=== PATIENT | female | born 1950 | race Caucasian/White ===

== ENCOUNTER 2017-10-31 13:02 | Emergency (ER) | payer MEDICARE, OTHER ==
[~2017-10-31] VITALS: Ht 160 cm; Wt 94.3 kg
[~2017-10-31 13:02] MED LIST: ASPI81CH PO; CLARITIN10 MG PO; CVS OMEGA-3 KR1 EACH PO; HYDCHL25; Hydrocodone Bt1 EACH PO; LATA.005SO BOTHEYES; LEVSOD50 PO; Mobic15 MG PO; POTASSIUM GLUCO90 MG PO; Pravachol40 MG PO; RANI150 PO; VERA120 PO
[2017-10-31 14:06] LABS: BASOPHILS ABSOLUTE AUTO 0.06 K/mm3 (0.00-0.23); BASOPHILS PERCENT AUTO 0 % (0-2); EOSINOPHILS ABSOLUTE AUTO 0.06 K/mm3 (0.00-0.68); EOSINOPHILS PERCENT AUTO 0 % (0-6); Hematocrit 31.1 % (33.0-51.0); Hemoglobin 10.2 g/dL (11.5-16.0); IMMATURE GRAN PERCENT AUTO 1 % (0-1); LYMPHOCYTES ABSOLUTE AUTO 2.56 K/mm3 (0.84-5.20); LYMPHOCYTES PERCENT AUTO 19 % (21-46); MONOCYTES ABSOLUTE AUTO 0.97 K/mm3 (0.16-1.47); MONOCYTES PERCENT AUTO 7 % (4-13); Mean Corpuscular HGB 28.2 pg (26.0-34.0); Mean Corpuscular HGB Conc 32.8 g/dL (31.5-36.5); Mean Corpuscular Volume 86 fL (80-100); Mean Platelet Volume 10.7 fL (9.1-12.4); NEUTROPHILS ABSOLUTE AUTO 9.76 K/mm3 (1.96-9.15); NEUTROPHILS PERCENT AUTO 72 % (41-73); Platelet Count 462 K/mm3 (150-400); RDW Coefficient Variation 14.6 % (11.7-14.2); RDW Standard Deviation 45.8 fL (35.1-46.3); Red Blood Cell Count 3.62 M/mm3 (3.80-5.20); White Blood Cell Count 13.51 K/mm3 (4.00-11.30)
[2017-10-31] MEDS ORDERED: Xalatan2.5 ML BOTHEYES (14:13)
[2017-10-31] MEDS ORDERED: VERA120ERB PO (14:23)
[2017-10-31] MEDS ORDERED: ALL DAY ALLERGY10 M1 PO (14:23)
[2017-10-31] MEDS ORDERED: PRAV20 PO (14:23)
[2017-10-31] MEDS ORDERED: ASPI81CH PO (14:23)
[2017-10-31] MEDS ORDERED: OMEPRAZOLE MAGN20 MG PO (14:23)
[2017-10-31] MEDS ORDERED: HYDCHL25 PO (14:24)
[2017-10-31] MEDS ORDERED: RANI150 PO (14:24)
[2017-10-31] MEDS ORDERED: MELO7.5 PO (14:24)
[2017-10-31] MEDS ORDERED: LEVSOD50 PO (14:24)
[2017-10-31] MEDS ORDERED: Norco 10-325 T1 EACH PO (14:25)
[2017-10-31 14:27] LABS: Alanine Aminotransfer (ALT/SGP 21 U/L (12-78); Albumin, Blood 3.4 g/dL (3.4-5.0); Alk Phos 109 U/L (50-136); Anion Gap 14 mmol/L (6-16); Aspartate Aminotrans (AST/SGOT 19 U/L (12-37); Bilirubin, Total 0.2 mg/dL (0.1-1.0); Blood Urea Nitrogen 30 mg/dL (8-24); CO2, Blood 22 mmol/L (21-32); Chloride, Blood 104 mmol/L (98-108); Creatinine, Blood 0.77 mg/dL (0.40-1.00); Globulin, Blood 3.3 g/dL (2.2-4.0); Glomerular Filtration Rate >60 (60-); Glucose, Blood 169 mg/dL (70-99); Potassium, Blood 3.1 mmol/L (3.5-5.5); Sodium, Blood 140 mmol/L (136-145); Total Protein, Blood 6.7 g/dL (6.4-8.2)
[2017-10-31 14:52] LABS: Troponin I 0.016 ng/mL (0.000-0.040)
[2017-10-31] MEDS ORDERED: Medi-Meclizine25 MG PO (15:57)
[2017-10-31] MEDS ORDERED: Zofran Odt8 MG SL (15:57)
[2017-12-06] MEDS ORDERED: VERA120ERB PO (17:01)
[2017-12-06] MEDS ORDERED: HYDCHL25 PO (17:01)
[2017-12-06] MEDS ORDERED: RANI150 PO (17:02)
[2017-12-06] MEDS ORDERED: MELO7.5 PO (17:02)
[2017-12-06] MEDS ORDERED: CALCA400CH PO (17:03)
[2017-12-06] MEDS ORDERED: LORA1SY PO (17:03)
[2017-12-06] MEDS ORDERED: POTASSIUM GLU2.5 MEQ PO (17:04)
[2017-12-06] MEDS ORDERED: OMEGA 3 KRILL OIL PO (17:05)
== END 2017-10-31 16:19 | disposition home or self-care (01) ==
LOC: ER 13:02
PROVIDERS: Emergency Medicine
DX: H81.09 Meniere's disease, unspecified ear (principal); I10 Essential (primary) hypertension; Z90.710 Acquired absence of both cervix and uterus
CPT/HCPCS: 36415; 70450; 80053; 84484; 85025; 93005; 93010; 96374; 96375; 99284; J2060; J2405

== ENCOUNTER 2017-11-03 08:53 | Inpatient (IN) | payer MEDICARE, OTHER ==
[~2017-11-03] VITALS: Ht 160 cm; Wt 96.7 kg
[~2017-11-03 08:53] MED LIST changes: +ALL DAY ALLERGY10 M1 PO; +HYDCHL25 PO; +MELO7.5 PO; +Medi-Meclizine25 MG PO; +Norco 10-325 T1 EACH PO; +OMEPRAZOLE MAGN20 MG PO; +PRAV20 PO; +VERA120ERB PO; +Xalatan2.5 ML BOTHEYES; +Zofran Odt8 MG SL
[2017-11-03 10:03] LABS: Alanine Aminotransfer (ALT/SGP 16 U/L (12-78); Albumin, Blood 2.7 g/dL (3.4-5.0); Albumin/Globulin Ratio 1.1 (0.8-1.8); Alk Phos 71 U/L (50-136); Anion Gap 13 mmol/L (6-16); Aspartate Aminotrans (AST/SGOT 9 U/L (12-37); Bilirubin, Total 0.2 mg/dL (0.1-1.0); Blood Urea Nitrogen 42 mg/dL (8-24); Bun/Creatinine Ratio 58.6 (12.0-20.0); CO2, Blood 22 mmol/L (21-32); Calcium, Blood 7.9 mg/dL (8.5-10.1); Chloride, Blood 104 mmol/L (98-108); Creatinine, Blood 0.72 mg/dL (0.40-1.00); Globulin, Blood 2.5 g/dL (2.2-4.0); Glomerular Filtration Rate >60 (60-); Glucose, Blood 163 mg/dL (70-99); Potassium, Blood 2.9 mmol/L (3.5-5.5); Sodium, Blood 139 mmol/L (136-145); Total Protein, Blood 5.2 g/dL (6.4-8.2)
[2017-11-03 10:20] LABS: BASOPHILS ABSOLUTE AUTO 0.01 K/mm3 (0.00-0.23); BASOPHILS PERCENT AUTO 0 % (0-2); EOSINOPHILS PERCENT AUTO 0 % (0-6); IMMATURE GRAN ABSOLUTE AUTO 0.14 K/mm3 (0.00-0.10); IMMATURE GRAN PERCENT AUTO 1 % (0-1); LYMPHOCYTES ABSOLUTE AUTO 1.62 K/mm3 (0.84-5.20); LYMPHOCYTES PERCENT AUTO 9 % (21-46); MONOCYTES ABSOLUTE AUTO 0.98 K/mm3 (0.16-1.47); MONOCYTES PERCENT AUTO 5 % (4-13); Mean Corpuscular HGB 28.4 pg (26.0-34.0); Mean Corpuscular HGB Conc 31.6 g/dL (31.5-36.5); Mean Platelet Volume 10.8 fL (9.1-12.4); NEUTROPHILS ABSOLUTE AUTO 15.76 K/mm3 (1.96-9.15); NEUTROPHILS PERCENT AUTO 85 % (41-73); NRBC ABSOLUTE 0.16 K/mm3 (0.00-0.02); NRBC Auto 0.9 /100 WBC (0.0-0.2); Platelet Count 330 K/mm3 (150-400); RDW Coefficient Variation 15.4 % (11.7-14.2); RDW Standard Deviation 48.1 fL (35.1-46.3); Red Blood Cell Count 1.69 M/mm3 (3.80-5.20); White Blood Cell Count 18.51 K/mm3 (4.00-11.30)
[2017-11-03 10:27] LABS: Hematocrit 15.2 % (33.0-51.0); Mean Corpuscular Volume 90 fL (80-100)
[2017-11-03 10:30] LABS: Hemoglobin 4.8 g/dL (11.5-16.0)
[2017-11-03 13:16] LABS: Source, Urine Clean Catch
[2017-11-03 13:21] LABS: Bilirubin, Urine Neg (Neg); Blood, Urine Neg (Neg); Glucose Qualitative, Urine Neg (Neg); Ketones, Urine 2+ (Neg); Leukocyte Esterase, Urine Neg (Neg); Nitrite, Urine Neg (Neg); Protein, Urine Neg (Neg); Specific Gravity, Urine 1.015 (1.003-1.022); Urobilinogen, Urine NORM (Normal)
[2017-11-03 13:33] LABS: Appearance, Urine Clear (Clear); Color, Urine Yellow (P-Yellow)
[2017-11-03 16:47] LABS: Hematocrit 19.1 % (33.0-51.0); Hemoglobin 6.2 g/dL (11.5-16.0)
[2017-11-03 22:44] LABS: Hematocrit 21.1 % (33.0-51.0); Hemoglobin 7.2 g/dL (11.5-16.0)
[2017-11-04 04:34] LABS: Hematocrit 24.1 % (33.0-51.0); Hemoglobin 8.2 g/dL (11.5-16.0); Mean Corpuscular HGB 29.4 pg (26.0-34.0); Mean Platelet Volume 10.5 fL (9.1-12.4); NRBC ABSOLUTE 0.19 K/mm3 (0.00-0.02); NRBC Auto 1.1 /100 WBC (0.0-0.2); Platelet Count 277 K/mm3 (150-400); RDW Coefficient Variation 14.4 % (11.7-14.2); RDW Standard Deviation 44.2 fL (35.1-46.3); Red Blood Cell Count 2.79 M/mm3 (3.80-5.20); White Blood Cell Count 17.57 K/mm3 (4.00-11.30)
[2017-11-04 04:39] LABS: Mean Corpuscular Volume 86 fL (80-100)
[2017-11-04 04:50] LABS: Anion Gap 10 mmol/L (6-16); Blood Urea Nitrogen 28 mg/dL (8-24); Bun/Creatinine Ratio 44.2 (12.0-20.0); CO2, Blood 25 mmol/L (21-32); Chloride, Blood 106 mmol/L (98-108); Creatinine, Blood 0.63 mg/dL (0.40-1.00); Glomerular Filtration Rate >60 (60-); Glucose, Blood 135 mg/dL (70-99); Potassium, Blood 3.3 mmol/L (3.5-5.5); Sodium, Blood 141 mmol/L (136-145)
[2017-11-05 05:04] LABS: Hematocrit 21.1 % (33.0-51.0); Hemoglobin 6.9 g/dL (11.5-16.0); Mean Corpuscular HGB 29.4 pg (26.0-34.0); Mean Corpuscular HGB Conc 32.7 g/dL (31.5-36.5); Mean Platelet Volume 10.5 fL (9.1-12.4); NRBC ABSOLUTE 0.08 K/mm3 (0.00-0.02); NRBC Auto 0.7 /100 WBC (0.0-0.2); Platelet Count 245 K/mm3 (150-400); RDW Coefficient Variation 15.4 % (11.7-14.2); RDW Standard Deviation 48.6 fL (35.1-46.3); Red Blood Cell Count 2.35 M/mm3 (3.80-5.20)
[2017-11-05 05:16] LABS: Mean Corpuscular Volume 90 fL (80-100)
[2017-11-05 05:18] LABS: Anion Gap 6 mmol/L (6-16); Blood Urea Nitrogen 24 mg/dL (8-24); Bun/Creatinine Ratio 37.8 (12.0-20.0); CO2, Blood 27 mmol/L (21-32); Calcium, Blood 7.4 mg/dL (8.5-10.1); Chloride, Blood 111 mmol/L (98-108); Creatinine, Blood 0.64 mg/dL (0.40-1.00); Glomerular Filtration Rate >60 (60-); Glucose, Blood 105 mg/dL (70-99); Potassium, Blood 3.7 mmol/L (3.5-5.5); Sodium, Blood 144 mmol/L (136-145)
[2017-11-06 06:19] LABS: Hematocrit 26.5 % (33.0-51.0); Hemoglobin 8.9 g/dL (11.5-16.0); Mean Corpuscular HGB 29.5 pg (26.0-34.0); Mean Corpuscular HGB Conc 33.6 g/dL (31.5-36.5); Mean Corpuscular Volume 88 fL (80-100); Mean Platelet Volume 10.3 fL (9.1-12.4); NRBC ABSOLUTE 0.05 K/mm3 (0.00-0.02); NRBC Auto 0.7 /100 WBC (0.0-0.2); Platelet Count 262 K/mm3 (150-400); RDW Standard Deviation 47.6 fL (35.1-46.3); Red Blood Cell Count 3.02 M/mm3 (3.80-5.20); White Blood Cell Count 7.39 K/mm3 (4.00-11.30)
[2017-11-06 06:35] LABS: Anion Gap 8 mmol/L (6-16); Blood Urea Nitrogen 10 mg/dL (8-24); CO2, Blood 26 mmol/L (21-32); Calcium, Blood 7.5 mg/dL (8.5-10.1); Chloride, Blood 111 mmol/L (98-108); Creatinine, Blood 0.56 mg/dL (0.40-1.00); Glomerular Filtration Rate >60 (60-); Glucose, Blood 88 mg/dL (70-99); Potassium, Blood 4.1 mmol/L (3.5-5.5); Sodium, Blood 145 mmol/L (136-145)
[2017-11-06] MEDS ORDERED: Senna Plus Tab1 EACH PO (11:17)
[2017-11-06] MEDS ORDERED: Ferrous Sulfat325 M2 PO (11:18)
[2017-11-06] MEDS ORDERED: THERA TABLET400 MCG PO (11:19)
[2017-12-06] MEDS ORDERED: VERA120ERB PO (17:01)
[2017-12-06] MEDS ORDERED: HYDCHL25 PO (17:01)
[2017-12-06] MEDS ORDERED: RANI150 PO (17:02)
[2017-12-06] MEDS ORDERED: MELO7.5 PO (17:02)
[2017-12-06] MEDS ORDERED: CALCA400CH PO (17:03)
[2017-12-06] MEDS ORDERED: LORA1SY PO (17:03)
[2017-12-06] MEDS ORDERED: POTASSIUM GLU2.5 MEQ PO (17:04)
[2017-12-06] MEDS ORDERED: OMEGA 3 KRILL OIL PO (17:05)
== END 2017-11-06 13:35 | disposition home or self-care (01) | DRG 378 ==
LOC: ER 08:53 → PCU 11:15 → MEDS 11-05 20:43 → ENPENDDIS 11-06 09:00 → MEDS 11-06 13:35
PROVIDERS: Emergency Medicine; Internal Medicine
DX: K57.91 Diverticulosis of intestine, part unspecified, without perforation or abscess with bleeding (principal); D62 Acute posthemorrhagic anemia; D72.829 Elevated white blood cell count, unspecified; I10 Essential (primary) hypertension; E87.6 Hypokalemia; Z87.891 Personal history of nicotine dependence; Z88.1 Allergy status to other antibiotic agents; Z91.09 Other allergy status, other than to drugs and biological substances; Z79.1 Long term (current) use of non-steroidal anti-inflammatories (NSAID); Z79.82 Long term (current) use of aspirin; Z79.891 Long term (current) use of opiate analgesic; Z79.899 Other long term (current) drug therapy
CPT/HCPCS: 36415; 36430; 70450; 74177; 80048; 80053; 81003; 84484; 85014; 85018; 85025; 85027; 86850; 86900; 86901; 86920; 93005; 93010; 96361; 96374; 96375; 99284; 99285; C1751; C9113; J0295; J1100; J2060; J2405; J3480; J7030; P9016; Q9967

== ENCOUNTER 2017-11-25 12:53 | Emergency (ER) | payer MEDICARE, OTHER ==
[~2017-11-25] VITALS: Ht 160 cm; Wt 88.5 kg
[~2017-11-25 12:53] MED LIST changes: +Ferrous Sulfat325 M2 PO; +Senna Plus Tab1 EACH PO; +THERA TABLET400 MCG PO
[2017-11-25] MEDS ORDERED: Ferrous Sulfat325 MG PO (13:22)
[2017-11-25 14:03] LABS: BASOPHILS ABSOLUTE AUTO 0.02 K/mm3 (0.00-0.23); BASOPHILS PERCENT AUTO 0 % (0-2); EOSINOPHILS PERCENT AUTO 3 % (0-6); Hemoglobin 11.4 g/dL (11.5-16.0); IMMATURE GRAN ABSOLUTE AUTO 0.02 K/mm3 (0.00-0.10); IMMATURE GRAN PERCENT AUTO 0 % (0-1); LYMPHOCYTES ABSOLUTE AUTO 0.97 K/mm3 (0.84-5.20); LYMPHOCYTES PERCENT AUTO 14 % (21-46); MONOCYTES ABSOLUTE AUTO 0.74 K/mm3 (0.16-1.47); MONOCYTES PERCENT AUTO 10 % (4-13); Mean Corpuscular HGB 28.3 pg (26.0-34.0); Mean Corpuscular HGB Conc 30.8 g/dL (31.5-36.5); Mean Corpuscular Volume 92 fL (80-100); NEUTROPHILS ABSOLUTE AUTO 5.16 K/mm3 (1.96-9.15); NEUTROPHILS PERCENT AUTO 73 % (41-73); Platelet Count 518 K/mm3 (150-400); RDW Coefficient Variation 14.9 % (11.7-14.2); RDW Standard Deviation 50.4 fL (35.1-46.3); Red Blood Cell Count 4.03 M/mm3 (3.80-5.20); White Blood Cell Count 7.11 K/mm3 (4.00-11.30)
[2017-11-25 14:26] LABS: Alanine Aminotransfer (ALT/SGP 30 U/L (12-78); Albumin, Blood 3.1 g/dL (3.4-5.0); Albumin/Globulin Ratio 0.9 (0.8-1.8); Alk Phos 161 U/L (50-136); Anion Gap 8 mmol/L (6-16); Aspartate Aminotrans (AST/SGOT 21 U/L (12-37); Bilirubin, Total 0.2 mg/dL (0.1-1.0); Blood Urea Nitrogen 10 mg/dL (8-24); Bun/Creatinine Ratio 16.4 (12.0-20.0); CO2, Blood 27 mmol/L (21-32); Calcium, Blood 8.8 mg/dL (8.5-10.1); Chloride, Blood 107 mmol/L (98-108); Creatinine, Blood 0.61 mg/dL (0.40-1.00); Globulin, Blood 3.6 g/dL (2.2-4.0); Glomerular Filtration Rate >60 (60-); Glucose, Blood 109 mg/dL (70-99); Potassium, Blood 3.3 mmol/L (3.5-5.5); Sodium, Blood 142 mmol/L (136-145); Total Protein, Blood 6.7 g/dL (6.4-8.2); Troponin I <0.015 ng/mL (0.000-0.040)
[2017-12-06] MEDS ORDERED: VERA120ERB PO (17:01)
[2017-12-06] MEDS ORDERED: HYDCHL25 PO (17:01)
[2017-12-06] MEDS ORDERED: RANI150 PO (17:02)
[2017-12-06] MEDS ORDERED: MELO7.5 PO (17:02)
[2017-12-06] MEDS ORDERED: CALCA400CH PO (17:03)
[2017-12-06] MEDS ORDERED: LORA1SY PO (17:03)
[2017-12-06] MEDS ORDERED: POTASSIUM GLU2.5 MEQ PO (17:04)
[2017-12-06] MEDS ORDERED: OMEGA 3 KRILL OIL PO (17:05)
== END 2017-11-25 15:12 | disposition home or self-care (01) ==
LOC: ER 12:53
PROVIDERS: Emergency Medicine
DX: K80.20 Calculus of gallbladder without cholecystitis without obstruction (principal); Z88.8 Allergy status to other drugs, medicaments and biological substances; Z88.1 Allergy status to other antibiotic agents; Z79.899 Other long term (current) drug therapy; Z79.82 Long term (current) use of aspirin
CPT/HCPCS: 36415; 76705; 80053; 83690; 84484; 85025; 93005; 93010; 99284

== ENCOUNTER 2017-12-15 07:17 | Day surgery (SDC) | payer MEDICARE, OTHER ==
[~2017-12-15] VITALS: Ht 162.6 cm; Wt 90.7 kg
[~2017-12-15 07:17] MED LIST changes: +CALCA400CH PO; +Ferrous Sulfat325 MG PO; +LORA1SY PO; +OMEGA 3 KRILL OIL PO; +POTASSIUM GLU2.5 MEQ PO
== END 2017-12-15 22:46 | disposition home or self-care (01) ==
LOC: ORSCMMR 07:17 → ORD 08:45 → ORSCMMR 22:46
PROVIDERS: Surgery
PROC: 0FT44ZZ Resection of Gallbladder, Percutaneous Endoscopic Approach (ICD-10-PCS; principal; 2017-12-15 08:45)
PROC: BF031ZZ Plain Radiography of Gallbladder and Bile Ducts using Low Osmolar Contrast (ICD-10-PCS; principal; 2017-12-15 08:45)
DX: K80.11 Calculus of gallbladder with chronic cholecystitis with obstruction (principal); I10 Essential (primary) hypertension; K21.9 Gastro-esophageal reflux disease without esophagitis; E03.9 Hypothyroidism, unspecified; E66.9 Obesity, unspecified; Z68.34 Body mass index [BMI] 34.0-34.9, adult; Z79.899 Other long term (current) drug therapy; Z79.82 Long term (current) use of aspirin
CPT/HCPCS: 74300; 88304; C1729; J0690; J1100; J2250; J2405; J2710; J3010; J3490; J7030; J7120

== ENCOUNTER 2019-06-21 08:21 | Day surgery (SDC) | payer MEDICARE, OTHER ==
[~2019-06-21] VITALS: Ht 160 cm; Wt 100.3 kg
[~2019-06-21 08:21] MED LIST changes: +Aspirin EC81 MG PO; +LEVSOD75 PO; +SENEXON-S TABL1 EACH PO; +Zantac150 MG PO
== END 2019-06-21 10:31 | disposition home or self-care (01) ==
LOC: ORSCSDS 08:21
PROVIDERS: Surgery
PROC: 0DB48ZX Excision of Esophagogastric Junction, Via Natural or Artificial Opening Endoscopic, Diagnostic (ICD-10-PCS; principal; 2019-06-21 09:45)
PROC: 0DB68ZX Excision of Stomach, Via Natural or Artificial Opening Endoscopic, Diagnostic (ICD-10-PCS; principal; 2019-06-21 09:45)
DX: K21.9 Gastro-esophageal reflux disease without esophagitis (principal); Z87.19 Personal history of other diseases of the digestive system; K44.9 Diaphragmatic hernia without obstruction or gangrene; I10 Essential (primary) hypertension; E78.00 Pure hypercholesterolemia, unspecified; J45.909 Unspecified asthma, uncomplicated; E66.9 Obesity, unspecified; Z68.39 Body mass index [BMI] 39.0-39.9, adult; Z87.891 Personal history of nicotine dependence; Z79.82 Long term (current) use of aspirin; Z79.899 Other long term (current) drug therapy
CPT/HCPCS: 88305; 88342; J2704; J7120

== ENCOUNTER 2019-08-28 08:15 | Observation (INO) | payer MEDICARE, OTHER ==
[~2019-08-28] VITALS: Ht 160 cm; Wt 98.4 kg
[2019-08-28] MEDS ORDERED: VERA120ERB PO (08:54)
[2019-08-28] MEDS ORDERED: LEVSOD75 PO (08:54)
[2019-08-28] MEDS ORDERED: Zantac150 MG PO (08:55)
[2019-08-28] MEDS ORDERED: HYDCHL12.5 PO (08:55)
[2019-08-28] MEDS ORDERED: NORCO 10-325 T1 EACH PO (08:55)
[2019-08-28] MEDS ORDERED: CLARITIN5 MG (08:56)
[2019-08-28] MEDS ORDERED: LATA.005SO BOTHEYES (08:56)
[2019-08-28] MEDS ORDERED: Aspir 8181 MG PO (08:56)
[2019-08-28 09:09] LABS: BASOPHILS ABSOLUTE AUTO 0.02 K/mm3 (0.00-0.23); BASOPHILS PERCENT AUTO 0 % (0-2); EOSINOPHILS ABSOLUTE AUTO 0.01 K/mm3 (0.00-0.68); EOSINOPHILS PERCENT AUTO 0 % (0-6); Hemoglobin 11.7 g/dL (11.5-16.0); IMMATURE GRAN ABSOLUTE AUTO 0.02 K/mm3 (0.00-0.10); IMMATURE GRAN PERCENT AUTO 0 % (0-1); LYMPHOCYTES ABSOLUTE AUTO 0.95 K/mm3 (0.84-5.20); LYMPHOCYTES PERCENT AUTO 8 % (21-46); MONOCYTES ABSOLUTE AUTO 0.44 K/mm3 (0.16-1.47); MONOCYTES PERCENT AUTO 4 % (4-13); Mean Corpuscular HGB 28.7 pg (26.0-34.0); Mean Corpuscular HGB Conc 32.5 g/dL (31.5-36.5); Mean Corpuscular Volume 88 fL (80-100); Mean Platelet Volume 11.2 fL (9.1-12.4); NEUTROPHILS ABSOLUTE AUTO 10.15 K/mm3 (1.96-9.15); NEUTROPHILS PERCENT AUTO 88 % (41-73); Platelet Count 375 K/mm3 (150-400); RDW Coefficient Variation 13.8 % (11.7-14.2); RDW Standard Deviation 44.6 fL (35.1-46.3); Red Blood Cell Count 4.08 M/mm3 (3.80-5.20); White Blood Cell Count 11.59 K/mm3 (4.00-11.30)
[2019-08-28 09:32] LABS: Alanine Aminotransfer (ALT/SGP 28 U/L (12-78); Albumin, Blood 3.5 g/dL (3.4-5.0); Alk Phos 138 U/L (50-136); Anion Gap 9 mmol/L (6-16); Aspartate Aminotrans (AST/SGOT 18 U/L (12-37); Bilirubin, Total 0.3 mg/dL (0.1-1.0); Blood Urea Nitrogen 21 mg/dL (8-24); Bun/Creatinine Ratio 33.3 (12.0-20.0); CO2, Blood 23 mmol/L (21-32); Chloride, Blood 101 mmol/L (98-108); Creatinine, Blood 0.63 mg/dL (0.40-1.00); Globulin, Blood 3.4 g/dL (2.2-4.0); Glomerular Filtration Rate >60 (60-); Glucose, Blood 151 mg/dL (70-99); Potassium, Blood 2.8 mmol/L (3.5-5.5); Sodium, Blood 133 mmol/L (136-145); Total Protein, Blood 6.9 g/dL (6.4-8.2); Troponin I <0.015 ng/mL (0.000-0.040)
[2019-08-28 09:55] LABS: Magnesium, Blood 1.9 mg/dL (1.6-2.4)
[2019-08-28 09:59] LABS: Thyroid Stimulating Hormone 0.77 uIU/mL (0.360-4.800)
[2019-08-28] MEDS ORDERED: Heartburn Relie20 MG PO (12:12)
[2019-08-28] MEDS ORDERED: LOSARTAN POTAS100 MG PO (12:13)
[2019-08-28] MEDS ORDERED: Mobic15 MG PO (12:16)
[2019-08-28] MEDS ORDERED: Pravachol40 MG PO (12:16)
[2019-08-28] MEDS ORDERED: CLARITIN10 MG PO (12:30)
--- NOTE | 2019-08-28 14:44 | NUR ---
PT ARRIVED TO THE UNIT VIA BED. PT WAS ABLE TO STAND AND PIVOT. PT WAS ABLE TO AMBULATE TO THE BATHROOM. PT A/O. PT MEDICATED FOR PAIN. LUNG SOUNDS ARE CLEAR. TELEMETRY IN PLACE.
--- NOTE | 2019-08-28 16:33 | NUR ---
[employer]LEMETY CALLED TO NOTIFY ME OF A 5 BEAT RUN OF [facility]. PROVIDER NOTIFIED, NO NEW ORDERS AT THIS TIME
[2019-08-28 22:26] LABS: Free Thyroxine 1.02 ng/dL (0.70-1.60)
[2019-08-28 22:29] LABS: Triiodothyronine, Free 1.68 pg/mL (2.18-3.98)
--- NOTE | 2019-08-29 05:30 | NUR ---
SHIFT SUMMARY: VSS. AFEB. A/OX4. COMMUNICATING NEEDS. NO HEART PALPITATIONS. HR INCREASED TO 120'S WHEN PT AMBULATED TO THE BATHROOM. RETURNED TO 83 AT REST. MEDICATED WITH PRN ANALGESIC X 2 TONIGHT FOR BACK PAIN. EACH TIME WITH GOOD EFFECT.
[2019-08-29 05:51] LABS: Anion Gap 5 mmol/L (6-16); Blood Urea Nitrogen 22 mg/dL (8-24); Bun/Creatinine Ratio 29.8 (12.0-20.0); CO2, Blood 26 mmol/L (21-32); Calcium, Blood 8.6 mg/dL (8.5-10.1); Chloride, Blood 108 mmol/L (98-108); Creatinine, Blood 0.74 mg/dL (0.40-1.00); Glomerular Filtration Rate >60 (60-); Glucose, Blood 111 mg/dL (70-99); Potassium, Blood 3.8 mmol/L (3.5-5.5); Sodium, Blood 139 mmol/L (136-145)
--- NOTE | 2019-08-29 10:29 | NUR ---
Echocardiogram completed.
--- NOTE | 2019-08-29 10:58 | NUR ---
Upon receiving an admit referral, I visited patient. Patient is lying in bed and alert. Patient openly shares about her sikhism tradition and her current involvement in the [employer] in [place]. Patient also tells me she is very pleased with the care she received in the hospital especially with our hospitalist who, "found the issue quickly." I listen empathically, normalize patient's experience and provide prayer. Patient stated that she fells 100% better than when she came in. I will continue to remain available to patient and family.
[2019-08-29] MEDS ORDERED: OMEPRAZOLE20 MG PO (14:30)
[2019-08-29] MEDS ORDERED: POTA10T PO (15:33)
--- NOTE | 2019-08-29 15:36 | NUR ---
faxed potassium rx to pharmacy. attempted to call patient to inform them of this additional rx, no answer. patient discharged via w/c, escorted by children counselor. power glider removed. no acute issues noted. Patient requested to discharge prior to the echo results. This RN informed patient that the DrSruthi would perfer she stayed, patient requested to be called with abnormal results. okay with this and will call if results are abnormal. Patient had no complaints able to make her needs known.
== END 2019-08-29 15:15 | disposition home or self-care (01) ==
LOC: ER 08:15 → MEDS 08:16
PROVIDERS: Emergency Medicine; Nurse Practitioner Acute Care; ADMIT Internal Medicine
DX: E87.6 Hypokalemia (principal); I47.2 Ventricular tachycardia; E03.9 Hypothyroidism, unspecified; I10 Essential (primary) hypertension; G89.29 Other chronic pain; M54.9 Dorsalgia, unspecified; F11.20 Opioid dependence, uncomplicated; K21.9 Gastro-esophageal reflux disease without esophagitis; E66.01 Morbid (severe) obesity due to excess calories; Z68.38 Body mass index [BMI] 38.0-38.9, adult; Z98.51 Tubal ligation status; Z90.49 Acquired absence of other specified parts of digestive tract; Z90.710 Acquired absence of both cervix and uterus; Z98.1 Arthrodesis status; Z79.899 Other long term (current) drug therapy; Z79.82 Long term (current) use of aspirin; Z88.1 Allergy status to other antibiotic agents; Z88.8 Allergy status to other drugs, medicaments and biological substances
CPT/HCPCS: 36415; 71046; 80048; 80053; 83735; 84132; 84439; 84443; 84481; 84484; 85025; 93005; 93010; 93306; 96361; 96365; 99285-25; G0378; J3480; J7030